=== PATIENT | female | born 1995 | race Caucasian/White ===

== ENCOUNTER 2025-01-04 23:29 | Emergency (ER) | payer BC, SELFPAY ==
[2025-01-04 23:29] VITALS: BP 143/85; PULSE 93; RESP 18; TEMP 37.2; O2SAT 98; BMI 40.9
--- NOTE | 2025-01-05 00:42 | EX.ED.DYSGE1 ---
HPI History of Present Illness Chief Complaint: Rash Informant: patient Narrative Narrative: Patient is a 29-year-old female who reports no significant past medical history. She states that throughout the day today she noticed a rash that is pruritic in nature and that started along the lower portion of her left leg. She states it is now present on her left forearm and along the left hip region. She denies any trouble breathing or swallowing. She denies any new exposure. She states that the rash has been spreading and is extremely pruritic and with concern it could be an allergic reaction presents for evaluation [facility] no medical history Home Medications ?Medication ?Instructions ?Recorded ?Last Taken ?Type desonide 0.05 % topical cream 1 applic topical TID PRN itching 01/05/25 Unknown Rx #60 grams prednisone 10 mg tablet 10 mg PO UD #33 tabs 01/05/25 Unknown Rx Allergy/AdvReac Type Severity Reaction Status Date / Time No Known Allergies Allergy Verified 01/04/25 23:32 Social History Smoking Status: Current some day smoker tobacco type: e-cigarettes ROS ROS ED Constitutional Constitutional ED: Denies chills or fever(s) ENT ENT ED: Denies rhinorrhea or sore throat Cardiovascular Cardiovascular: Denies chest pain Respiratory/Chest Respiratory/Chest: Denies cough or dyspnea Gastrointestinal Gastrointestinal: Denies abdominal pain, diarrhea, nausea or vomiting Musculoskeletal Musculoskeletal: Denies myalgias Integumentary Reports rash Neurologic Neurologic: Denies headache(s) Hematologic/Lymphatic Hematologic/Lymphatic: Denies easy bleeding or easy bruising Allergic/Immunologic Allergic/Immunologic ED: Denies mouth swelling or tongue swelling EXAM Physical Exam Const Vital Signs: 01/04/25 23:29 01/05/25 01:11 Temperature 98.9 F 98.6 F Temperature Source Oral Pulse Rate 93 75 Respiratory Rate 18 18 Blood Pressure 143/85 H 122/83 H Blood Pressure Mean 104 96 Pulse Ox 98 98 Oxygen Delivery Method Room Air Positive well nourished and well developed General Appearance ED: well developed HEENT HEENT Narrative: Normocephalic atraumatic No tongue or lip swelling no oral lesions no airway edema or compromise Eyes PERRL and EOMs intact bilaterally General Eye ED: Negative for scleral icterus Neck supple Resp normal respiratory effort and clear to auscultation bilaterally Resp Narrative: No nasal flaring retractions tachypnea or accessory muscle use Cardio regular rate and regular rhythm Extremity normal to inspection Neuro oriented x3, CN's II-XII intact bilaterally and no sensory deficits noted Sensorium / Orientation: alert Motor Exam: strength 5/5 throughout Psych mental status grossly normal Skin Skin Narrative: Patient has erythematous blanchable urticarial rash along the lateral aspect of the left leg that begins at the mid marcano/calf region and extends up towards the hip. There is another area of blanchable erythema along the dorsal aspect of the distal third of the left forearm. There is no involvement of the palms or soles or no sloughing of skin tissue MDM MDM MDM Narrative Medical decision making narrative: Patient presenting with stable vitals and has a pruritic rash located only to a few sections of her body. She denied any new exposures but the physical exam is most consistent with a contact dermatitis. She does not have findings of cellulitis or abscess of shingles of varicella and she does not have findings to suggest angioedema or anaphylaxis. Therefore this time I do not feel the need for imaging or laboratory testing and patient can be placed on symptomatic medications and is otherwise safe for discharge History & Record Review Discussion w/independent historian: Patient Discharge Plan Triage Chief Complaint: Rash ED Provider: Chano Perrin Dx/Rx/DC Orders Clinical Impression: Contact dermatitis Instructions: ED Contact Dermatitis Prescriptions: New desonide 0.05 % cream 1 applic topical TID PRN (Reason: itching) Qty: 60 0RF prednisone 10 mg tablet 10 mg PO UD Qty: 33 0RF Rx Instructions: Take 4 tablets daily for 3 days, then 3 daily for 3 days, then 2 daily for 3 days, then 1 a day for 3 days then 1 QOD for 3 doses. Primary Care Provider: Care Physician,No Primary Referrals: Care Physician,No Primary [Primary Care Provider, Medical] Activity Restrictions/Additional Instructions: Your history and exam is consistent with a allergic reaction secondary to contact dermatitis. Take the steroid to help reduce itch and you may add up to 2 Benadryl 3 times a day if needed for improved itch relief. You may also add the topical steroid to help control itch. Symptoms should improve over the next 5 to 7 days. Return to the ER should you have any further concerns Print Language: Yakut Disposition Disposition: Home, Self Care Discharge Date/Time: 01/05/25 01:12
[2025-01-05 01:11] VITALS: BP 122/83; PULSE 75; RESP 18; TEMP 37; O2SAT 98
== END 2025-01-05 01:12 | disposition home or self-care (01) ==
PROVIDERS: Emergency Provider Emergency Medicine; Visit Provider Emergency Medicine
DX: L25.9 Unspecified contact dermatitis, unspecified cause (principal); F17.290 Nicotine dependence, other tobacco product, uncomplicated
CPT/HCPCS: 99282